=== PATIENT | female | born 1945 | race Caucasian/White ===

== ENCOUNTER 2018-03-29 20:50 | Emergency (ER) | payer MEDICARE, OTHER ==
[~2018-03-29] VITALS: Ht 165.1 cm; Wt 72.6 kg
[2018-03-29 20:52] VITALS: Ht 165.1 cm; Wt 72.6 kg
[2018-03-29] MEDS ORDERED: VIT D (20:57)
[2018-03-29] MEDS ORDERED: NAMENDA10 MG PO (20:57)
[2018-03-29] MEDS ORDERED: LIPITOR40 MG PO (20:58)
[2018-03-29 21:29] LABS: BASOPHILS 0.2 % (0-2); EOSINOPHILS 1.7 % (0-7); HEMATOCRIT 40.2 % (36.0-48.0); HEMOGLOBIN 13.5 g/dL (12-16); IMMATURE GRANULOCYTES 0.2 % (0-5); LYMPHOCYTES 7.3 % (15-50); MCH 31.9 pg (26.0-34.0); MCHC 33.6 g/dL (31.0-37.0); MEAN PLATELET VOLUME 10.9 fL (7.4-10.4); MONOCYTES 8.3 % (2-11); NEUTROPHILS 82.3 % (40-80); PLATELET COUNT 147 10x3/uL (130-400); RBC 4.23 10x6/uL (4.00-5.40); RDW 12.4 % (11.5-14.5); WBC 13.2 10x3/uL (4.8-10.8)
[2018-03-29 21:30] LABS: APPEARANCE CLEAR (CLEAR); COLOR YELLOW (YELLOW); SPECIFIC GRAVITY 1.015 (1.005-1.020)
[2018-03-29 21:31] LABS: BACTERIA NONE SEEN /hpf (NONE SEEN); BILIRUBIN NEGATIVE (NEGATIVE); EPITHELIAL CELLS NSEEN /hpf (0-5); GLUCOSE 100 mg/dL (NEGATIVE); KETONE NEGATIVE (NEGATIVE); NITRITE NEGATIVE (NEGATIVE); PROTEIN NEGATIVE (NEGATIVE); RED CELLS - URINE 0-5 /hpf (0-5); UROBILINOGEN NORMAL (NORMAL); WHITE CELLS - URINE NSEEN /hpf (0-5)
[2018-03-29 21:55] LABS: ALBUMIN 3.6 g/dL (3.4-5.0); ANION GAP 11.3 mmol/L (8-16); BILIRUBIN - TOTAL 0.26 mg/dL (0.2-1.3); CARBON DIOXIDE 30.3 mmol/L (21.0-32.0); CREATININE - SERUM 1.3 mg/dL (0.6-1.3); POTASSIUM - SERUM 4.6 mmol/L (3.5-5.1); PROTEIN - SERUM 7.3 g/dL (6.4-8.2)
[2018-03-29 22:55] VITALS: BP 186/91
[2018-03-30] MEDS ORDERED: FISH OIL 1,0001 CA1 PO (10:55)
[2018-03-30] MEDS ORDERED: ZYRTEC PO (10:55)
[2018-03-31 09:51] VITALS: Ht 165.1 cm; Wt 72.6 kg
== END 2018-03-29 22:56 | disposition home or self-care (01) ==
LOC: D.ER 20:50
PROVIDERS: Emergency Medicine
DX: G30.9 Alzheimer's disease, unspecified (principal); F02.80 Dementia in other diseases classified elsewhere, unspecified severity, without behavioral disturbance, psychotic disturbance, mood disturbance, and anxiety; W18.30XA Fall on same level, unspecified, initial encounter; Y93.89 Activity, other specified; Y92.019 Unspecified place in single-family (private) house as the place of occurrence of the external cause

== ENCOUNTER 2018-03-30 10:48 | Inpatient (IN) | payer MEDICARE, OTHER ==
[~2018-03-30] VITALS: Ht 160 cm; Wt 54.4 kg
--- NOTE | ~2018-03-30 | MORECARE ---
CASE MANAGEMENT DISCHARGE SUMMARY PATIENT: MONTSE NEVILLE UNIT: [id number] ADM DATE: 03/30/18 AGE: 72 : 41 SEX: F ROOM/BED: D.2213 AUTHOR: ALISIA,DOC PHYSICIAN: REFERRING PHYSICIAN: CATHIE LÓPEZ MD DATE OF SERVICE: 04/01/18 Discharge Plan Patient Name: MONTSE NEVILLE Facility: [facility]:[place] : 1945 Planned Disposition: Anticipated Discharge Date: Discharge Date: Expected LOS: Initial Reviewer: [email or web address] Initial Review Date: 03/30/2018 Generated: 04/01/18 2:36 pm Comments DCP- Discharge Planning Updated by [email or web address]: Berna Nikko on 04/01/18 12:[address] SPOKE WITH PATIENT'S DAUGHTER, SHE IS WANTING HER MOM TO GO TO [facility] FOR SKILLED SECOND CHOICE IS [facility] I CALLED [facility] ([facility]) AND SPOKE WITH A DANIEL SHE SAID THAT HER ADMINISTRATION AND ESTHER WERE OUT FOR THE DAY AND THAT SHE WOULD GET THEM THE PAPERWORK TOMORROW TO REVIEW AND GET BACK WITH ME. CM WILL CONTINUE TO FOLLOW AND ASSIST WITH DC PLANNING. MANISHA PLACED IN CHART DCP- Discharge Planning Updated by [email or web address]: Inge Malick on 03/30/18 12:[address] CM met with patient and spouse in ER/room to discuss dc needs/plans. Patient's spouse and daughter provided verbal consent to discuss current and ongoing needs. Patient is awake, but drowsy from medications. Hx: Alzheimer's Disease. CM discussed availability of Home Health, Rehab Services and Medical Equipment. PCP: Dr. Morrison/Yoselin Bloom APRN. Pharmacy: [facility], [employer] mail-off, retirement. HHS: Request HHS. DME: Shower chair. Emergency Contact: Williams Neville (spouse) #[phone], Daughters: Jeannine #[phone], Flores #[phone]. Family states they would prefer, at this time, to utilize [facility], as patient will be around familiar surroundings. CM advised of Rehab availability, should the family feel the patient would benefit from these services. Patient's daughter states that patient must be guided with ambulation and hand assisted. Requires assistance with bathing, dressing, mediation management. Daughter states the patient is mostly continent. CM will continue to follow and assist with dc needs/plans PRN. Inge Teresa RN CM DCPIA - Discharge Planning Initial Assessment Updated by [email or web address]: Inge Teresa on 03/30/18 1:06 pm * Is the patient Alert and Oriented? Yes * How many steps to enter\exit or inside your home? * PCP Yoselin Randall MOTOR SETTER * Pharmacy [facility] for long term care pharmacist medicationa * Preadmission Environment Home with Family * ADLs Partial Dependent * Partial ADLs (Assistance needed) Ambulation Bathing Dressing Medication Management Toileting Transfers * Equipment Shower Chair * Other Equipment None @present * List name and contact numbers for known caregivers / representatives who currently or will assist patient after discharge: Williams Neville (spouse) [phone] Jeannine (dtr) [phone] Flores (dtr) [phone] * Verbal permission to speak to the caregivers and representatives has been obtained from the patient. Yes * Community resources currently utilized None * Please name any agencies selected above. Prefers [facility] * Additional services required to return to the preadmission environment? Yes * Can the patient safely return to the preadmission environment? Yes * Has this patient been hospitalized within the prior 30 days at any hospital? No Last DP export: 04/01/18 12:26 Patient Name: MONTSE NEVILLE Page [id number] at 1336 All edits/amendments must be made on the electronic document DICTATION DATE: 04/01/18 1335 INSTRUCTIONAL MATERIAL DIRECTOR: CORY 04/01/18 1335 RPT#: [id number] DC DATE: STATUS: ADM IN [facility] [address] [place] [address] END OF REPORT
--- NOTE | ~2018-03-30 | MORECARE ---
CASE MANAGEMENT DISCHARGE SUMMARY PATIENT: MONTSE NEVILLE UNIT: [id number] ADM DATE: 03/30/18 AGE: 72 : 43 SEX: F ROOM/BED: D.2213 AUTHOR: ALISIADOC PHYSICIAN: REFERRING PHYSICIAN: CATHIE LÓPEZ MD DATE OF SERVICE: 04/05/18 Discharge Plan Patient Name: MONTSE NEVILLE Facility: [facility]:[place] : 1945 Planned Disposition: Anticipated Discharge Date: Discharge Date: Expected LOS: Initial Reviewer: [email or web address] Initial Review Date: 03/30/2018 Generated: 04/05/18 12:17 pm Comments DCP- Discharge Planning Updated by [id number]: Berna El on 04/05/18 10:[address] Patient will be discharging to [facility] today via EMS- [facility]. She will be going to a skilled bed. IMM served and explained to patient's daughter. CM will continue to follow and assist with DC planning as needed DCP- Discharge Planning Updated by [id number]: Berna El on 04/01/18 12:[address] SPOKE WITH PATIENT'S DAUGHTER, SHE IS WANTING HER MOM TO GO TO [facility] FOR SKILLED SECOND CHOICE IS [facility] I CALLED [facility] ([facility]) AND SPOKE WITH A DANIEL SHE SAID THAT HER ADMINISTRATION AND ESTHER WERE OUT FOR THE DAY AND THAT SHE WOULD GET THEM THE PAPERWORK TOMORROW TO REVIEW AND GET BACK WITH ME. CM WILL CONTINUE TO FOLLOW AND ASSIST WITH DC PLANNING. MANISHA PLACED IN CHART DCP- Discharge Planning Updated by [email or web address]: Inge Teresa on 03/30/18 12:[address] CM met with patient and spouse in ER/room to discuss dc needs/plans. Patient's spouse and daughter provided verbal consent to discuss current and ongoing needs. Patient is awake, but drowsy from medications. Hx: Alzheimer's Disease. CM discussed availability of Home Health, Rehab Services and Medical Equipment. PCP: Dr. Morrison/Yoselin Bloom APRN. Pharmacy: [facility] short term, [facility] [employer] mail-off, middle or intermediate school principal. HHS: Request HHS. DME: Shower chair. Emergency Contact: Williams Neville (spouse) #[phone], Daughters: Jeannine #[phone], Flores #[phone]. Family states they would prefer, at this time, to utilize [facility], as patient will be around familiar surroundings. CM advised of Rehab availability, should the family feel the patient would benefit from these services. Patient's daughter states that patient must be guided with ambulation and hand assisted. Requires assistance with bathing, dressing, mediation management. Daughter states the patient is mostly continent. CM will continue to follow and assist with dc needs/plans PRN. Inge Teresa RN, CM DCPIA - Discharge Planning Initial Assessment Updated by [email or web address]: Inge Teresa on 03/30/18 1:06 pm * Is the patient Alert and Oriented? Yes * How many steps to enter\exit or inside your home? * PCP Yoselin Randall SECURITY GUARDS DISPATCHER * Pharmacy [facility] for middle or intermediate school principal medicationa * Preadmission Environment Home with Family * ADLs Partial Dependent * Partial ADLs (Assistance needed) Ambulation Bathing Dressing Medication Management Toileting Transfers * Equipment Shower Chair * Other Equipment None @present * List name and contact numbers for known caregivers / representatives who currently or will assist patient after discharge: Williams Neville (spouse) [phone] Jeannine (dtr) [phone] Flores (dtr) [phone] * Verbal permission to speak to the caregivers and representatives has been obtained from the patient. Yes * Community resources currently utilized None * Please name any agencies selected above. Pref[facility] * Additional services required to return to the preadmission environment? Yes * Can the patient safely return to the preadmission environment? Yes * Has this patient been hospitalized within the prior 30 days at any hospital? No Coverage Notice Reviewer: [email or web address] - Berna El Notice Issued Date-Time: 04/05/2018 11:00 Notice Type: IM Discharge Notice Notice Delivered To: Family Member Relationship to Patient: Daughter African History Professor Name: brad pfeiffer Delivery Method: HAND - Hand Delivered Arianna Days: Prior Verbal Notification: Recipient Understood Notice: Yes Recipient Signature: Yes Med Rec Note Co-signed by Attending: Coverage Notice Comment: Last DP export: 04/05/18 6:59 Patient Name: MONTSE NEVILLE Page 02845 at 1117 All edits/amendments must be made on the electronic document DICTATION DATE: 04/05/181116 TIMBER ROBBER: CORY 04/05/181116 RPT#: [id number] DC DATE: STATUS: ADM IN [facility] [address] [place] [address] END OF REPORT
--- NOTE | ~2018-03-30 | OP ---
PATIENT NAME: MONTSE NEVILLE MEDICAL RECORD: [id number] :41 LOCATION:[id number].MS [id number] ADMISSION DATE:03/30/18 SURGEON: CHEO ESCOBEDO MD DATE OF OPERATION: 03/31/2018 PREOPERATIVE DIAGNOSIS: Femoral neck fracture of the left hip. POSTOPERATIVE DIAGNOSIS: Femoral neck fracture of the left hip. PROCEDURE: Bipolar endoprosthetic hip replacement. SURGEON: Cheo Escobedo MD ANESTHESIA: General. INTRAOPERATIVE COMPLICATIONS: None. SUMMARY OF PATHOLOGIC FINDINGS: While the patient did not have a greatly displaced femoral neck fracture, she is very demented, and due to inability to follow with postoperative nonweightbearing orders decision was made to proceed with bipolar endoprosthesis as she still is ambulatory from time to time. OPERATIVE SUMMARY IN DETAIL: After obtaining the appropriate preoperative orthopedic surgery consent as well as anesthetic consultation, evaluation and clearance, the patient was brought to the operating room and placed on the operating table in supine position. After general laryngeal mask airway was administered, the patient was placed in a right lateral decubitus position. All pressure points were well padded to include down leg peroneal pad as well as axillary roll. The patient was held firmly to the operating table using the vacuum pack suction system. Left lower extremity and hip were then prepped and draped in routine sterile fashion. Curvilinear incision was made over the greater trochanter, taken down to the level of IT band, which was split in line with the fibers of IT band to reveal gluteus medius minimus attachment. These were reflected anteriorly and saved for later reapproximation. The hip capsule was split in a T-type fashion and likewise saved for later reapproximation. The femoral neck fracture was noted. A femoral neck cut was made using the Accolade II femoral neck cutting guide. These bone fragments were removed and then the corkscrew was utilized to extract the femoral head from the acetabulum. All bony fragments were removed. At this point, serial and sequential reaming and broaching were done to a size 5 Accolade II TMZF coated stem, size [address]. Trials were undertaken and it was thought that the standard ____ inside diameter was the best. This was articulated with a 44 mm outside diameter bipolar component, tamped into placed with the Ricci taper. The hip was reduced, taken through range of motion and found to be stable in all planes. Intraoperative radiograph showed good position and placement with a leg length discrepancy restored. Having completed this, the wound was copiously irrigated at this and multiple points during the case. Hip capsule was closed with #2 Ethibond followed by #5 transosseous Ethibond, reapproximation of the gluteus medius and minimus back to the greater trochanter. IT band was closed with #2 Ethibond followed by #1 Vicryl, 2-0 Vicryl and skin cynthia. Sterile dressings were applied. The patient was awakened and taken to the recovery room in stable condition. All final needle and sponge counts were correct. TRANSINT:[id number] Voice Confirmation ID: [id number] DOCUMENT ID: [id number] OPERATIVE REPORT [id number] MONTSE NEVILLE MD, CHEO GUERRA at 1351 CC: [id number] DICTATION DATE: 04/01/18 1049 INCOME TAX EXPERT: 04/01/18 1158 ADM IN [place] [id number] [place] [address]
--- NOTE | ~2018-03-30 | MORECARE ---
CASE MANAGEMENT DISCHARGE SUMMARY PATIENT: MONTSE NEVILLE UNIT: [id number] ADM DATE: 03/30/18 AGE: 72 : 41 SEX: F ROOM/BED: D.2213 AUTHOR: MARELY CRUMP PHYSICIAN: REFERRING PHYSICIAN: CATHIE LÓPEZ MD DATE OF SERVICE: 04/01/18 Discharge Plan Patient Name: MONTSE NEVILLE Facility: [facility]:[place] : 1945 Planned Disposition: Anticipated Discharge Date: Discharge Date: Expected LOS: Initial Reviewer: [email or web address] Initial Review Date: 03/30/2018 Generated: 04/01/18 2:26 pm DCP- Discharge Planning Updated by [email or web address]: Inge Teresa on 03/30/18 12:[address] CM met with patient and spouse in ER/room to discuss dc needs/plans. Patient's spouse and daughter provided verbal consent to discuss current and ongoing needs. Patient is awake, but drowsy from medications. Hx: Alzheimer's Disease. CM discussed availability of Home Health, Rehab Services and Medical Equipment. PCP: Dr. Morrison/Yoselin Bloom APRN. Pharmacy: [facility], [employer] mail-off, [facility]. HHS: Request [facility]. DME: Shower chair. Emergency Contact: Williams Neville (spouse) #[phone], Daughters: Jeannine #[phone], Flores #[phone]. Family states they would prefer, at this time, to utilize [facility], as patient will be around familiar surroundings. CM advised of Rehab availability, should the family feel the patient would benefit from these services. Patient's daughter states that patient must be guided with ambulation and hand assisted. Requires assistance with bathing, dressing, mediation management. Daughter states the patient is mostly continent. CM will continue to follow and assist with dc needs/plans PRN. Inge Teresa RN, CM DCPIA - Discharge Planning Initial Assessment Updated by [email or web address]: Inge Teresa on 03/30/18 1:06 pm * Is the patient Alert and Oriented? Yes * How many steps to enter\exit or inside your home? * PCP Yoselin Randall APRN * Pharmacy [facility] mail-[facility] for appeals coordinator medicationa * Preadmission Environment Home with Family * ADLs Partial Dependent * Partial ADLs (Assistance needed) Ambulation Bathing Dressing Medication Management Toileting Transfers * Equipment Shower Chair * Other Equipment None @present * List name and contact numbers for known caregivers / representatives who currently or will assist patient after discharge: Williams Neville (spouse) [phone] Jeannine (dtr) [phone] Flores (dtr) [phone] * Verbal permission to speak to the caregivers and representatives has been obtained from the patient. Yes * Community resources currently utilized None * Please name any agencies selected above. Prefers [facility] * Additional services required to return to the preadmission environment? Yes * Can the patient safely return to the preadmission environment? Yes * Has this patient been hospitalized within the prior 30 days at any hospital? No External Providers External Provider: [facility] Next Contact Date: Service Request Date: Service Type: Resolution: Reviewer: Comments: Last DP export: 03/30/18 12:36 Patient Name: MONTSE NEVILLE Page 89938 at 1326 All edits/amendments must be made on the electronic document DICTATION DATE: 04/01/18 1326 TECHNICAL SALES ENGINEER: CORY 04/01/18 1326 RPT#: [id number] DC DATE: STATUS: ADM IN [facility] [address] [place] [address] END OF REPORT
--- NOTE | ~2018-03-30 | MORECARE ---
CASE MANAGEMENT DISCHARGE SUMMARY PATIENT: MONTSE NEVILLE UNIT: [id number] ADM DATE: 03/30/18 AGE: 72 : 43 SEX: F ROOM/BED: D.2213 AUTHOR: MARELY CRUMP PHYSICIAN: REFERRING PHYSICIAN: CATHIE LÓPEZ MD DATE OF SERVICE: 04/12/18 Discharge Plan Patient Name: MONTSE NEVILLE Facility: [facility]:[place] : 1945 Planned Disposition: Anticipated Discharge Date: Discharge Date: 04/05/2018 Expected LOS: 0 Initial Reviewer: [id number] Initial Review Date: 03/30/2018 Generated: 04/12/18 11:10 am Comments DCP- Discharge Planning Updated by [email or web address]: Berna El on 04/05/18 10:[address] Patient will be discharging to [facility] today via EMS- [facility]. She will be going to a skilled bed. IMM served and explained to patient's daughter. CM will continue to follow and assist with DC planning as needed DCP- Discharge Planning Updated by [email or web address]: Berna El on 04/01/18 12:[address] SPOKE WITH PATIENT'S DAUGHTER, SHE IS WANTING HER MOM TO GO TO [facility] FOR SKILLED SECOND CHOICE IS [facility] I CALLED [facility] ([facility]) AND SPOKE WITH A DANIEL SHE SAID THAT HER ADMINISTRATION AND ESTHER WERE OUT FOR THE DAY AND THAT SHE WOULD GET THEM THE PAPERWORK TOMORROW TO REVIEW AND GET BACK WITH ME. CM WILL CONTINUE TO FOLLOW AND ASSIST WITH DC PLANNING. MANISHA PLACED IN CHART DCP- Discharge Planning Updated by [email or web address]: Inge Teresa on 03/30/18 12:[address] CM met with patient and spouse in ER/room to discuss dc needs/plans. Patient's spouse and daughter provided verbal consent to discuss current and ongoing needs. Patient is awake, but drowsy from medications. Hx: Alzheimer's Disease. CM discussed availability of Home Health, Rehab Services and Medical Equipment. PCP: Dr. Morrison/Yoselin Bloom APRN. 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 HHS: Request [facility]HS. DME: Shower chair. Emergency Contact: Williams Neville (spouse) #[phone], Daughters: Jeannine #[phone], Flores #[phone]. Family states they would prefer, at this time, to utilize [facility], as patient will be around familiar surroundings. CM advised of Rehab availability, should the family feel the patient would benefit from these services. Patient's daughter states that patient must be guided with ambulation and hand assisted. Requires assistance with bathing, dressing, mediation management. Daughter states the patient is mostly continent. CM will continue to follow and assist with dc needs/plans PRN. Inge Teresa RN, CM DCPIA - Discharge Planning Initial Assessment Updated by [email or web address]: Inge Teresa on 03/30/18 1:06 pm * Is the patient Alert and Oriented? Yes * How many steps to enter\exit or inside your home? * PCP Yoselin Randall APRN * [facility] for intermediate medicationa * Preadmission Environment Home with Family * ADLs Partial Dependent * Partial ADLs (Assistance needed) Ambulation Bathing Dressing Medication Management Toileting Transfers * Equipment Shower Chair * Other Equipment None @present * List name and contact numbers for known caregivers / representatives who currently or will assist patient after discharge: Williams Neville (spouse) [phone] Jeannine (dtr) [phone] Flores (dtr) [phone] * Verbal permission to speak to the caregivers and representatives has been obtained from the patient. Yes * Community resources currently utilized None * Please name any agencies selected above. [facility] * Additional services required to return to the preadmission environment? Yes * Can the patient safely return to the preadmission environment? Yes * Has this patient been hospitalized within the prior 30 days at any hospital? No Coverage Notice Reviewer: [email or web address] Barbara El Notice Issued Date-Time: 04/05/2018 11:00 Notice Type: IM Discharge Notice Notice Delivered To: Family Member Relationship to Patient: Daughter Financial Aid Name: brad pfeiffer Delivery Method: HAND - Hand Delivered Arianna Days: Prior Verbal Notification: Recipient Understood Notice: Yes Recipient Signature: Yes Med Rec Note Co-signed by Attending: Coverage Notice Comment: Last DP export: 04/05/18 10:17 Patient Name: MONTSE NEVILLE Page 64173 at 1010 All edits/amendments must be made on the electronic document DICTATION DATE: 04/12/18 100 ACCOUNTING ADMINISTRATIVE ASSISTANT: CORY 04/12/18 100 RPT#: [id number] DC DATE:04/05/18 STATUS: DIS IN [facility] [address] [place] [address] END OF REPORT
--- NOTE | ~2018-03-30 | MORECARE ---
CASE MANAGEMENT DISCHARGE SUMMARY PATIENT: MONTSE NEVILLE UNIT: [id number] ADM DATE: 03/30/18 AGE: 72 : 43 SEX: F ROOM/BED: D.E11 AUTHOR: MARELY CRUMP PHYSICIAN: REFERRING PHYSICIAN: CATHIE LÓPEZ MD DATE OF SERVICE: 03/30/18 Discharge Plan Patient Name: MONTSE NEVILLE Facility: [facility]:[place] : 1945 Planned Disposition: Anticipated Discharge Date: Discharge Date: Expected LOS: Initial Reviewer: [id number] Initial Review Date: 03/30/2018 Generated: 03/30/18 2:36 pm Comments DCP- Discharge Planning Updated by [email or web address]: Inge Teresa on 03/30/18 12:[address] CM met with patient and spouse in ER/room to discuss dc needs/plans. Patient's spouse and daughter provided verbal consent to discuss current and ongoing needs. Patient is awake, but drowsy from medications. Hx: Alzheimer's Disease. CM discussed availability of Home Health, Rehab Services and Medical Equipment. PCP: Dr. Morrison/Yoselin Bloom APRN. Pharmacy: [email or web address], [facility] mail-off, longterm. HHS: Request [facility]. DME: Shower chair. Emergency Contact: Williams Neville (spouse) #[phone], Daughters: Jeannine #[phone], Flores #[phone]. Family states they would prefer, at this time, to utilize [facility], as patient will be around familiar surroundings. CM advised of Rehab availability, should the family feel the patient would benefit from these services. Patient's daughter states that patient must be guided with ambulation and hand assisted. Requires assistance with bathing, dressing, mediation management. Daughter states the patient is mostly continent. CM will continue to follow and assist with dc needs/plans PRN. Inge Teresa RN, CM DCPIA - Discharge Planning Initial Assessment Updated by [email or web address]: Inge Teresa on 03/30/18 1:06 pm * Is the patient Alert and Oriented? Yes * How many steps to enter\exit or inside your home? * PCP Yoselin Randall APRN * [facility]acy [facility] for longterm medicationa * Preadmission Environment Home with Family * ADLs Partial Dependent * Partial ADLs (Assistance needed) Ambulation Bathing Dressing Medication Management Toileting Transfers * Equipment Shower Chair * Other Equipment None @present * List name and contact numbers for known caregivers / representatives who currently or will assist patient after discharge: Wililams Neville (spouse) [phone] Jeannine (dtr) [phone] Flores (dtr) [phone] * Verbal permission to speak to the caregivers and representatives has been obtained from the patient. Yes * Community resources currently utilized None * Please name any agencies selected above. Prefers [facility] * Additional services required to return to the preadmission environment? Yes * Can the patient safely return to the preadmission environment? Yes * Has this patient been hospitalized within the prior 30 days at any hospital? No Last DP export: 03/30/18 12:14 Patient Name: MONTSE NEVILLE Page 25099 at 1336 All edits/amendments must be made on the electronic document DICTATION DATE: 03/30/18 1335 GENERALIST: CORY 03/30/18 1335 RPT#: [id number] AL DATE: STATUS: ADM IN [facility] [address] [place] [address] END OF REPORT
--- NOTE | ~2018-03-30 | MORECARE ---
CASE MANAGEMENT DISCHARGE SUMMARY PATIENT: MONTSE NEVILLE UNIT: [id number] ADM DATE: 03/30/18 AGE: 72 : 41 SEX: F ROOM/BED: D.E11 AUTHOR: MARELY CRUMP PHYSICIAN: REFERRING PHYSICIAN: CATHIE LÓPEZ MD DATE OF SERVICE: 03/30/18 Discharge Plan Patient Name: MONTSE NEVILLE Facility: [facility]:[place] : 1945 Planned Disposition: Anticipated Discharge Date: Discharge Date: Expected LOS: Initial Reviewer: [email or web address] Initial Review Date: 03/30/2018 Generated: 03/30/18 2:14 pm DCPIA - Discharge Planning Initial Assessment Updated by [email or web address]: Inge Teresa on 03/30/18 1:06 pm * Is the patient Alert and Oriented? Yes * How many steps to enter\exit or inside your home? * PCP Yoselin Randall APRN * [facility] for buttermaker medicationa * Preadmission Environment Home with Family * ADLs Partial Dependent * Partial ADLs (Assistance needed) Ambulation Bathing Dressing Medication Management Toileting Transfers * Equipment Shower Chair * Other Equipment None @present * List name and contact numbers for known caregivers / representatives who currently or will assist patient after discharge: Williams Neville (spouse) [phone] Jeannine (dtr) [phone] Flores (dtr) [phone] * Verbal permission to speak to the caregivers and representatives has been obtained from the patient. Yes * Community resources currently utilized None * Please name any agencies selected above. Prefers [facility] * Additional services required to return to the preadmission environment? Yes * Can the patient safely return to the preadmission environment? Yes * Has this patient been hospitalized within the prior 30 days at any hospital? No Last DP export: 03/30/18 12:04 Patient Name: MONTSE NEIVLLE Page [id number] at 1314 All edits/amendments must be made on the electronic document DICTATION DATE: 03/30/18 1314 [employer] DESIGNER: CORY 03/30/18 1314 RPT#: [id number] DC DATE: STATUS: ADM IN [address] [place] [address] END OF REPORT
--- NOTE | ~2018-03-30 | MORECARE ---
CASE MANAGEMENT DISCHARGE SUMMARY PATIENT: MONTSE NEVILLE UNIT: [id number] ADM DATE: 03/30/18 AGE: 72 : 43 SEX: F ROOM/BED: D.E11 AUTHOR: MARELY CRUMP PHYSICIAN: REFERRING PHYSICIAN: CATHIE LÓPEZ MD DATE OF SERVICE: 03/30/18 Discharge Plan Patient Name: MONTSE NEVILLE [facility] [facility] 1945 Planned Disposition: Anticipated Discharge Date: Discharge Date: Expected LOS: Initial Reviewer: [email or web address] Initial Review Date: 03/30/2018 Generated: 03/30/18 2:04 pm Patient Name: MONTSE NEVILLE Page [id number] at 1305 All edits/amendments must be made on the electronic document DICTATION DATE: 03/30/18 1304 PLASTER TENDER: CORY 03/30/18 1304 RPT#: [id number] DC DATE: STATUS: ADM IN [facility] [address] [place] [address] END OF REPORT
--- NOTE | ~2018-03-30 | MORECARE ---
CASE MANAGEMENT DISCHARGE SUMMARY PATIENT: MONTSE NEVILLE UNIT: [id number] ADM DATE: 03/30/18 AGE: 72 : 43 SEX: F ROOM/BED: D.2213 AUTHOR: ALISIA,DOC PHYSICIAN: REFERRING PHYSICIAN: CATHIE LÓPEZ MD DATE OF SERVICE: 04/05/18 Discharge Plan Patient Name: MONTSE NEVILLE Facility: [facility]:[place] : 1945 Planned Disposition: Anticipated Discharge Date: Discharge Date: Expected LOS: Initial Reviewer: [email or web address] Initial Review Date: 03/30/2018 Generated: 04/05/18 8:59 am Comments DCP- Discharge Planning Updated by [email or web address]: Berna Nikko on 04/01/18 12:[address] SPOKE WITH PATIENT'S DAUGHTER, SHE IS WANTING HER MOM TO GO TO [facility] FOR SKILLED SECOND CHOICE IS [facility] I CALLED [facility] ([facility]) AND SPOKE WITH A DANIEL SHE SAID THAT HER ADMINISTRATION AND ESTHER WERE OUT FOR THE DAY AND THAT SHE WOULD GET THEM THE PAPERWORK TOMORROW TO REVIEW AND GET BACK WITH ME. CM WILL CONTINUE TO FOLLOW AND ASSIST WITH DC PLANNING. MANISHA PLACED IN CHART DCP- Discharge Planning Updated by [email or web address]: Ingeman Teresa on 03/30/18 12:[address] CM met with patient and spouse in ER/room to discuss dc needs/plans. Patient's spouse and daughter provided verbal consent to discuss current and ongoing needs. Patient is awake, but drowsy from medications. Hx: Alzheimer's Disease. CM discussed availability of Home Health, Rehab Services and Medical Equipment. PCP: Dr. Morrison/Yoselin Bloom APRN. Pharmacy: [facility], [facility] mail-[facility], long-term. HHS: Request HHS. DME: Shower chair. Emergency Contact: Williams Neville (spouse) #[phone], Daughters: Jeannine #[phone], Flores #[phone]. Family states they would prefer, at this time, to utilize [facility], as patient will be around familiar surroundings. CM advised of Rehab availability, should the family feel the patient would benefit from these services. Patient's daughter states that patient must be guided with ambulation and hand assisted. Requires assistance with bathing, dressing, mediation management. Daughter states the patient is mostly continent. CM will continue to follow and assist with dc needs/plans PRN. Inge Teresa RN CM DCPIA - Discharge Planning Initial Assessment Updated by [email or web address]: Inge Teresa on 03/30/18 1:06 pm * Is the patient Alert and Oriented? Yes * How many steps to enter\exit or inside your home? * PCP Yoselin Randall RAILWAY STATION MANAGER * Pharmacy [facility] for intermediate manager medicationa * Preadmission Environment Home with Family * ADLs Partial Dependent * Partial ADLs (Assistance needed) Ambulation Bathing Dressing Medication Management Toileting Transfers * Equipment Shower Chair * Other Equipment None @present * List name and contact numbers for known caregivers / representatives who currently or will assist patient after discharge: Williams Neville (spouse) [phone] Jeannine (dtr) [phone] Flores (dtr) [phone] * Verbal permission to speak to the caregivers and representatives has been obtained from the patient. Yes * Community resources currently utilized None * Please name any agencies selected above. Prefers [facility] * Additional services required to return to the preadmission environment? Yes * Can the patient safely return to the preadmission environment? Yes * Has this patient been hospitalized within the prior 30 days at any hospital? No Last DP export: 04/01/18 12:36 Patient Name: MONTSE NEVILLE Page [id number] at 0759 All edits/amendments must be made on the electronic document DICTATION DATE: 04/05/18757 CHAINSTITCH FELLED SEAM OPERATOR: CORY 04/05/18757 RPT#: [id number] DC DATE: STATUS: ADM IN [facility] [address] [place] [address] END OF REPORT
[~2018-03-30 10:48] MED LIST: LIPITOR40 MG PO; NAMENDA10 MG PO; VIT D
[2018-03-30] MEDS ORDERED: FISH OIL 1,0001 CA1 PO (10:55)
[2018-03-30] MEDS ORDERED: ZYRTEC PO (10:55)
[2018-03-30 11:50] LABS: BASOPHILS 0.2 % (0-2); EOSINOPHILS 3.6 % (0-7); HEMATOCRIT 38.9 % (36.0-48.0); HEMOGLOBIN 13.1 g/dL (12-16); LYMPHOCYTES 13.9 % (15-50); MCH 31.5 pg (26.0-34.0); MCHC 33.7 g/dL (31.0-37.0); MCV 93.5 fL (80.0-100.0); MEAN PLATELET VOLUME 10.6 fL (7.4-10.4); NEUTROPHILS 75.3 % (40-80); PLATELET COUNT 127 10x3/uL (130-400); RBC 4.16 10x6/uL (4.00-5.40); RDW 12.3 % (11.5-14.5)
[2018-03-30 12:01] VITALS: BP 166/63
[2018-03-30 12:07] LABS: WBC 8.1 10x3/uL (4.8-10.8)
[2018-03-30 12:10] LABS: INR 1.11 (0.85-1.17); PROTIME 13.9 SECONDS (11.6-15.0)
[2018-03-30 12:11] LABS: ALBUMIN 3.2 g/dL (3.4-5.0); ANION GAP 12.7 mmol/L (8-16); BILIRUBIN - TOTAL 0.58 mg/dL (0.2-1.3); CALCIUM 8.7 mg/dL (8.5-10.1); CARBON DIOXIDE 27.5 mmol/L (21.0-32.0); POTASSIUM - SERUM 4.2 mmol/L (3.5-5.1); PROTEIN - SERUM 6.7 g/dL (6.4-8.2)
[2018-03-30 12:33] LABS: APPEARANCE CLEAR (CLEAR); BACTERIA FEW /hpf (NONE SEEN); BILIRUBIN NEGATIVE (NEGATIVE); COLOR YELLOW (YELLOW); EPITHELIAL CELLS RARE /hpf (0-5); GLUCOSE NEGATIVE (NEGATIVE); KETONE NEGATIVE (NEGATIVE); MUCUS <1+ /lpf (NONE SEEN); NITRITE NEGATIVE (NEGATIVE); PROTEIN NEGATIVE (NEGATIVE); RED CELLS - URINE 0-5 /hpf (0-5); SPECIFIC GRAVITY 1.005 (1.005-1.020); UROBILINOGEN NORMAL (NORMAL); WHITE CELLS - URINE RARE /hpf (0-5)
[2018-03-30 14:15] VITALS: BP 102/81; BMI 21.3
[2018-03-30 20:16] VITALS: BP 190/75
[2018-03-31 03:31] VITALS: BP 184/98
[2018-03-31 05:27] LABS: BASOPHILS 0.2 % (0-2); EOSINOPHILS 1.8 % (0-7); HEMATOCRIT 34.8 % (36.0-48.0); HEMOGLOBIN 11.8 g/dL (12-16); IMMATURE GRANULOCYTES 0.1 % (0-5); LYMPHOCYTES 11.5 % (15-50); MCH 31.2 pg (26.0-34.0); MCHC 33.9 g/dL (31.0-37.0); MCV 92.1 fL (80.0-100.0); MONOCYTES 8.6 % (2-11); NEUTROPHILS 77.8 % (40-80); PLATELET COUNT 141 10x3/uL (130-400); RBC 3.78 10x6/uL (4.00-5.40); RDW 12.1 % (11.5-14.5); WBC 9.4 10x3/uL (4.8-10.8)
[2018-03-31 05:44] LABS: ALBUMIN 2.9 g/dL (3.4-5.0); ANION GAP 11.4 mmol/L (8-16); BILIRUBIN - TOTAL 0.45 mg/dL (0.2-1.3); CALCIUM 8.2 mg/dL (8.5-10.1); CARBON DIOXIDE 26.5 mmol/L (21.0-32.0); CREATININE - SERUM 0.9 mg/dL (0.6-1.3); POTASSIUM - SERUM 3.9 mmol/L (3.5-5.1); PROTEIN - SERUM 6.2 g/dL (6.4-8.2)
[2018-03-31 08:42] VITALS: BP 166/78
[2018-03-31 09:51] VITALS: Ht 160 cm; Wt 54.4 kg
[2018-03-31 13:24] VITALS: BP 138/73
[2018-03-31 21:47] VITALS: BP 184/80
[2018-04-01 05:11] VITALS: BP 171/81
[2018-04-01 06:19] LABS: BASOPHILS 0.2 % (0-2); EOSINOPHILS 0 % (0-7); HEMATOCRIT 29.9 % (36.0-48.0); HEMOGLOBIN 10.4 g/dL (12-16); IMMATURE GRANULOCYTES 0.2 % (0-5); LYMPHOCYTES 7.7 % (15-50); MCH 31.1 pg (26.0-34.0); MCHC 34.8 g/dL (31.0-37.0); MEAN PLATELET VOLUME 11.3 fL (7.4-10.4); MONOCYTES 11.4 % (2-11); NEUTROPHILS 80.5 % (40-80); PLATELET COUNT 133 10x3/uL (130-400); RBC 3.34 10x6/uL (4.00-5.40); RDW 11.9 % (11.5-14.5); WBC 11.5 10x3/uL (4.8-10.8)
[2018-04-01 06:27] LABS: MCV 89.5 fL (80.0-100.0)
[2018-04-01 06:51] LABS: ALBUMIN 2.5 g/dL (3.4-5.0); ANION GAP 13.5 mmol/L (8-16); BILIRUBIN - TOTAL 0.62 mg/dL (0.2-1.3); CALCIUM 8.1 mg/dL (8.5-10.1); CARBON DIOXIDE 23.4 mmol/L (21.0-32.0); CREATININE - SERUM 0.8 mg/dL (0.6-1.3); POTASSIUM - SERUM 3.9 mmol/L (3.5-5.1); PROTEIN - SERUM 5.7 g/dL (6.4-8.2)
[2018-04-01 09:16] VITALS: BP 157/79
[2018-04-01 12:49] VITALS: BP 170/82
[2018-04-01 16:53] VITALS: BP 163/80
[2018-04-01 21:17] VITALS: BP 172/76
[2018-04-02 05:01] VITALS: BP 157/75
[2018-04-02 05:18] LABS: BASOPHILS 0.1 % (0-2); EOSINOPHILS 0.5 % (0-7); HEMATOCRIT 24.1 % (36.0-48.0); HEMOGLOBIN 8.7 g/dL (12-16); IMMATURE GRANULOCYTES 0.2 % (0-5); MCH 31.6 pg (26.0-34.0); MCHC 36.1 g/dL (31.0-37.0); MCV 87.6 fL (80.0-100.0); MEAN PLATELET VOLUME 10.7 fL (7.4-10.4); MONOCYTES 12.3 % (2-11); NEUTROPHILS 79.9 % (40-80); PLATELET COUNT 112 10x3/uL (130-400); RBC 2.75 10x6/uL (4.00-5.40); RDW 11.9 % (11.5-14.5); WBC 11.6 10x3/uL (4.8-10.8)
[2018-04-02 05:31] LABS: ALKALINE PHOSPHATASE 42 U/L (46-116); ALT (SGPT) 36 U/L (10-68); BILIRUBIN - TOTAL 0.72 mg/dL (0.2-1.3); CALC OSMOLALITY 251 mosm/kg (275-300); CALCIUM 7.7 mg/dL (8.5-10.1); CARBON DIOXIDE 22.1 mmol/L (21.0-32.0); CHLORIDE - SERUM 94 mmol/L (98-107); CREATININE - SERUM 0.7 mg/dL (0.6-1.3); GLUCOSE 92 mg/dL (74-106); POTASSIUM - SERUM 3.7 mmol/L (3.5-5.1); SODIUM 124 mmol/L (136-145); UREA NITROGEN 17 mg/dL (7-18); eGFR NON AFRICAN AMERICAN 87 mL/min (90-120)
[2018-04-02 08:43] VITALS: BP 145/58
[2018-04-02 12:30] VITALS: BP 158/68
[2018-04-02 16:52] VITALS: BP 164/68
[2018-04-02 20:00] VITALS: BP 138/69
[2018-04-03] VITALS: BP 154/56
[2018-04-03 04:00] VITALS: BP 149/61
[2018-04-03 05:39] LABS: BASOPHILS 0.1 % (0-2); EOSINOPHILS 2.9 % (0-7); HEMATOCRIT 23.6 % (36.0-48.0); HEMOGLOBIN 8.5 g/dL (12-16); IMMATURE GRANULOCYTES 0.1 % (0-5); MCH 31.5 pg (26.0-34.0); MCV 87.4 fL (80.0-100.0); MEAN PLATELET VOLUME 10.9 fL (7.4-10.4); NEUTROPHILS 76.9 % (40-80); PLATELET COUNT 112 10x3/uL (130-400); RDW 11.9 % (11.5-14.5); WBC 9.6 10x3/uL (4.8-10.8)
[2018-04-03 05:53] LABS: ANION GAP 11.3 mmol/L (8-16); BILIRUBIN - TOTAL 0.73 mg/dL (0.2-1.3); CALCIUM 7.9 mg/dL (8.5-10.1); CARBON DIOXIDE 23.4 mmol/L (21.0-32.0); CREATININE - SERUM 0.8 mg/dL (0.6-1.3); POTASSIUM - SERUM 3.7 mmol/L (3.5-5.1); PROTEIN - SERUM 5.3 g/dL (6.4-8.2)
[2018-04-03 09:37] VITALS: BP 156/71
[2018-04-03 16:42] VITALS: BP 163/65
[2018-04-03 19:51] VITALS: BP 150/56
[2018-04-04] VITALS: BP 128/61
[2018-04-04 04:00] VITALS: BP 140/61
[2018-04-04 05:21] LABS: BASOPHILS 0.2 % (0-2); EOSINOPHILS 3.2 % (0-7); HEMATOCRIT 21.9 % (36.0-48.0); HEMOGLOBIN 7.9 g/dL (12-16); IMMATURE GRANULOCYTES 0.2 % (0-5); LYMPHOCYTES 7.7 % (15-50); MCH 31.6 pg (26.0-34.0); MCHC 36.1 g/dL (31.0-37.0); MCV 87.6 fL (80.0-100.0); MEAN PLATELET VOLUME 10.5 fL (7.4-10.4); MONOCYTES 10.2 % (2-11); NEUTROPHILS 78.5 % (40-80); RDW 11.8 % (11.5-14.5); WBC 8.8 10x3/uL (4.8-10.8)
[2018-04-04 05:25] LABS: PLATELET COUNT 142 10x3/uL (130-400)
[2018-04-04 05:40] LABS: ALKALINE PHOSPHATASE 45 U/L (46-116); ALT (SGPT) 51 U/L (10-68); BILIRUBIN - TOTAL 0.81 mg/dL (0.2-1.3); CALC OSMOLALITY 259 mosm/kg (275-300); CALCIUM 7.8 mg/dL (8.5-10.1); CARBON DIOXIDE 21.6 mmol/L (21.0-32.0); CHLORIDE - SERUM 95 mmol/L (98-107); CREATININE - SERUM 0.7 mg/dL (0.6-1.3); GLUCOSE 94 mg/dL (74-106); POTASSIUM - SERUM 3.6 mmol/L (3.5-5.1); PROTEIN - SERUM 4.7 g/dL (6.4-8.2); SODIUM 129 mmol/L (136-145); UREA NITROGEN 16 mg/dL (7-18); eGFR NON AFRICAN AMERICAN 87 mL/min (90-120)
[2018-04-04 09:22] VITALS: BP 194/66
[2018-04-04 15:23] VITALS: BP 161/63
[2018-04-04 19:56] VITALS: BP 108/50
[2018-04-05] VITALS: BP 116/58
[2018-04-05 04:00] VITALS: BP 110/55
[2018-04-05 04:44] LABS: BASOPHILS 0.3 % (0-2); EOSINOPHILS 3.8 % (0-7); IMMATURE GRANULOCYTES 0.3 % (0-5); MCH 30.3 pg (26.0-34.0); MCHC 35.3 g/dL (31.0-37.0); MCV 85.8 fL (80.0-100.0); MEAN PLATELET VOLUME 10.2 fL (7.4-10.4); MONOCYTES 12.5 % (2-11); NEUTROPHILS 74.1 % (40-80); PLATELET COUNT 145 10x3/uL (130-400); RDW 13.2 % (11.5-14.5); WBC 7.6 10x3/uL (4.8-10.8)
[2018-04-05 04:46] LABS: HEMATOCRIT 28.9 % (36.0-48.0); HEMOGLOBIN 10.2 g/dL (12-16); RBC 3.37 10x6/uL (4.00-5.40)
[2018-04-05 04:59] LABS: ALBUMIN 1.9 g/dL (3.4-5.0); ALKALINE PHOSPHATASE 46 U/L (46-116); ALT (SGPT) 43 U/L (10-68); BILIRUBIN - TOTAL 1.51 mg/dL (0.2-1.3); CALC OSMOLALITY 274 mosm/kg (275-300); CALCIUM 7.9 mg/dL (8.5-10.1); CARBON DIOXIDE 23.8 mmol/L (21.0-32.0); CHLORIDE - SERUM 103 mmol/L (98-107); CREATININE - SERUM 0.7 mg/dL (0.6-1.3); GLUCOSE 97 mg/dL (74-106); POTASSIUM - SERUM 3.3 mmol/L (3.5-5.1); SODIUM 137 mmol/L (136-145); UREA NITROGEN 14 mg/dL (7-18); eGFR NON AFRICAN AMERICAN 87 mL/min (90-120)
[2018-04-05 08:52] VITALS: BP 164/76
[2018-04-05] MEDS ORDERED: ELIQUIS2.5 MG PO (10:38)
[2018-04-05] MEDS ORDERED: TYLENOL650 MG RC (10:39)
== END 2018-04-05 13:07 | DRG 470 ==
LOC: D.ER 10:48 → D.MS 12:30 → D.EDHOLD 12:30 → D.MS 13:40
PROVIDERS: Emergency Medicine; Family Medicine; Orthopaedic Surgery
PROC: 0SRS0JZ Replacement of Left Hip Joint, Femoral Surface with Synthetic Substitute, Open Approach (ICD-10-PCS; principal; 2018-03-31 11:00)
DX: S72.012A Unspecified intracapsular fracture of left femur, initial encounter for closed fracture (principal); G30.9 Alzheimer's disease, unspecified; F02.80 Dementia in other diseases classified elsewhere, unspecified severity, without behavioral disturbance, psychotic disturbance, mood disturbance, and anxiety; E78.5 Hyperlipidemia, unspecified; W01.0XXA Fall on same level from slipping, tripping and stumbling without subsequent striking against object, initial encounter; R32 Unspecified urinary incontinence; J32.9 Chronic sinusitis, unspecified